=== PATIENT | female | born 1965 | race Caucasian/White ===

== ENCOUNTER 2018-09-11 18:56 | Inpatient (IN) | payer MEDICAID ==
[~2018-09-11] VITALS: Ht 160 cm; Wt 77.0 kg
[~2018-09-11 18:56] MED LIST: ADVIL; DULO20CA17 PO; GABA-526 PO; HYOS0.1297 PO; OMEP20CA16 PO; SUCR1TAB56 PO; TOPI50TA13 PO
[2018-09-11 18:59] VITALS: Ht 160 cm; Wt 77.0 kg
[2018-09-11] MEDS ORDERED: ONDANSETRON 4 MG INJ IV STA ×2 (21:02→23:45)
[2018-09-11] MEDS ORDERED: morphine 4 MG/ML VIAL IV STA (21:02)
[2018-09-11] MEDS ORDERED: SOD CHLORIDE 0.9% 1,000 ML IV STA (21:02)
[2018-09-11] MEDS ORDERED: BELLADONNA/PHENOBARBITAL TAB PO STA (21:17)
[2018-09-11] MEDS ORDERED: LIDOCAINE/MYLANTA 40 ML BTL PO STA (21:17)
--- NOTE | 2018-09-11 21:17 | ERD ---
ER Documentation Chief Complaint Chief Complaint REFFERED FROM U/C FOR R/O GALLSTONES;RUQ AND BACK PAIN X1WK HPI This is a 53-year-old female that presents to the emergency department complaining of right upper quadrant pain for 1 month. She indicates that it is progressively worsened over the past week worse now radiated to the tip of her right scapula. She was seen today at clinic, [facility], seen by Dr. Balderrama. She was immediately sent to the emergency department for further evaluation for her pain. The patient indicates the pain is exacerbated when she eats. She felt nauseous but has not experienced any emesis. No diarrhea. No fevers or shaking or chills. No alleviating or exacerbating factors. The pain is 8 out of 10 in intensity. ROS All systems reviewed and are negative except as per history of present illness. Medications Home Meds Active Scripts Sucralfate* (Carafate*) 1 Gm Tab, 1 GM PO BID, #60 TAB Prov:EDOUARD MACHADO MD 09/11/18 Reported Medications [Advil] No Conflict Check 06/18/11 Allergies Allergies: Uncoded Allergies: NONE (Allergy, 06/18/11) PMhx/Soc History of Surgery: No Anesthesia Reaction: No Hx Neurological Disorder: No Hx Respiratory Disorders: No Hx Cardiac Disorders: No Hx Psychiatric Problems: No Hx Miscellaneous Medical Probl: No Hx Alcohol Use: No Hx Substance Use: No Hx Tobacco Use: No Physical Exam Vitals Vital Signs Date Temp Pulse Resp B/P (MAP) Pulse Ox O2 O2 Flow FiO2 Time Delivery Rate 09/11/18 97.8 66 19 113/66 99 Room Air 21:15 (82) 09/11/18 97.8 72 19 134/74 99 18:59 (94) Physical Exam Constitutional:Well-developed. Well-nourished. HEENT:Normocephalic. Atraumatic.Pupils were equal round reactive to light. Moist mucous membranes. Respiratory: Not using accessory muscles of respiration.Lungs were clear to auscultation bilaterally. No rhonchi. No rales. No wheezing. Cardiovascular: Regular rate regular rhythm.No murmurs. No rubs were appreciated.S1, S2 normal. Distal pulses are palpable 2+ bilaterally. GI: Abdomen was soft. Right upper quadrant tenderness. Negative Cordero sign. Tenderness in the right lower quadrant. No CVA tenderness. No tenderness over McBurney's point and psoas sign and obturator sign are negative.. Non Distended. No pulsatile abdominal masses or bruits. No rebound. No guarding. Bowel sounds were present and normal. Muscle skeletal: Full range of motion of both the upper and lower extremities bilaterally.Normal muscle tone.No assymetrical calf tenderness or swelling. Skin: No petechia, no purpura. No lesions on the palms or the soles of the feet. No maculopapular rash. NEURO: Patient was alert, awake, orientated x3.No facial droop. Gait observed and normal with no ataxia.Speech had regular rate and rhythm. No focal neurological deficits. Result Diagram: 09/11/18214909/11/182149 Results 24 hrs Laboratory Tests Test 09/11/18 21:40 09/11/18 21:50 Urine Color STRAW Urine Clarity CLEAR Urine pH 6.0 Urine Specific [place] 1.003 Urine Ketones NEGATIVE mg/dL Urine Nitrite NEGATIVE mg/dL Urine Bilirubin NEGATIVE mg/dL Urine Urobilinogen NEGATIVE mg/dL Urine Leukocyte Esterase NEGATIVE Frandy/ul Urine Hemoglobin NEGATIVE mg/dL Urine Glucose NEGATIVE mg/dL Urine Total Protein NEGATIVE mg/dl White Blood Count 7.5 10^3/ul Red Blood Count 4.14 10^6/ul Hemoglobin 12.4 g/dl Hematocrit 37.9 % Mean Corpuscular Volume 91.5 fl Mean Corpuscular Hemoglobin 30.0 pg Mean Corpuscular Hemoglobin Concent 32.7 g/dl Red Cell Distribution Width 14.4 % Platelet Count 239 10^3/UL Mean Platelet Volume 11.6 fl Immature Granulocytes % 0.300 % Neutrophils % 55.5 % Lymphocytes % 36.7 % Monocytes % 6.2 % Eosinophils % 0.9 % Basophils % 0.4 % Nucleated Red Blood Cells % 0.0 /100WBC Immature Granulocytes # 0.020 10^3/ul Neutrophils # 4.2 10^3/ul Lymphocytes # 2.8 10^3/ul Monocytes # 0.5 10^3/ul Eosinophils # 0.1 10^3/ul Basophils # 0.0 10^3/ul Nucleated Red Blood Cells # 0.0 10^3/ul Prothrombin Time 12.9 Sec Prothrombin Time Ratio 1.0 INR International Normalized Ratio 0.96 Activated Partial Thromboplast Time 35.8 Sec Sodium Level 140 mmol/L Potassium Level 3.4 mmol/L Chloride Level 107 mmol/L Carbon Dioxide Level 22 mmol/L Anion Gap 11 Blood Urea Nitrogen 10 mg/dl Creatinine 0.65 mg/dl Est Glomerular Filtrat Rate mL/min > 60 mL/min Glucose Level 139 mg/dl Calcium Level 9.3 mg/dl Total Bilirubin 0.4 mg/dl Direct Bilirubin 0.00 mg/dl Indirect Bilirubin 0.4 mg/dl Aspartate Amino Transf (AST/SGOT) 23 IU/L Alanine Aminotransferase (ALT/SGPT) 22 IU/L Alkaline Phosphatase 63 IU/L Troponin I < 0.012 ng/ml Total Protein 7.7 g/dl Albumin 4.1 g/dl Globulin 3.60 g/dl Albumin/Globulin Ratio 1.13 Amylase Level 82 U/L Lipase 57 U/L Current Medications Medications Dose Sig/Daniel Start Time Status Last (Trade) Ordered Route PRN Stop Time Admin Dose Reason Admin Sodium 1,000 ml @ Q1H STAT 09/11/18 DC 09/11/18 Chloride 1,000 mls/hr IV 21:02 21:02 09/11/18 22:01 Morphine 4 mg ONCE STAT 09/11/18 DC 09/11/18 Sulfate IV 21:02 21:02 (morphine) 09/11/18 21:03 Ondansetron 4 mg ONCE STAT 09/11/18 DC 09/11/18 HCl (Zofran IV 21:02 21:02 Inj) 09/11/18 21:03 40 ml ONCE STAT 09/11/18 DC 09/11/18 Miscellaneous PO 21:17 21:57 Medication 09/11/18 21:18 (Gi Cocktail (2)) Belladonna/ 2 tab ONCE STAT 09/11/18 DC 09/11/18 Phenobarbital PO 21:17 21:57 () 09/11/18 21:18 IV Flush 10 ml STK-MED 09/11/18 DC (NS 10 ml) ONCE .ROUTE 21:53 09/11/18 21:54 Sodium 100 ml @ ud STK-MED 09/11/18 DC Chloride ONCE .ROUTE 21:53 09/11/18 21:54 Iohexol 150 ml STK-MED 09/11/18 DC (Omnipaque ONCE .ROUTE 21:53 300mg/ ml) 09/11/18 21:54 Procedures/MDM The patient presented to the emergency department with epigastric pain. My differential diagnosis included but was not limited to abdominal aortic aneurysm, choledocholithiasis, gallstone ileus, renal colic, pyelonephritis, pancreatitis, peptic ulcer disease, atypical myocardical infarction, mesenteric ischemia, GERD, pulmonary infarction. The patient was placed on a vehicle monitor technician, continuous pulse oximetry and IV access was established by nursing staff. An EKG was obtained to rule out myocardial ischemia. There was no elevation of LFTs to suggest ductal obstruction, cholangitis, cholecystiitis or hepatitis. Given that the urinalysis did not show bilirubinuria, my suspicion for common duct obstruction or hepatitis was low. 12 Lead EKG tracing ordered and reviewed by myself showed: Normal sinus rhythm of 67 bpm and no arrhythmia. NH interval normal. QRS duration normal. No ST segment elevation No ST segment depression. No changes consistent with acute ischemia. I obtained a bedside ultrasound of the gallbladder. There is no evidence of cholelithiasis. Therefore at this time I did feel it was necessary to further evaluate with a CT scan given that she did have reproducible tenderness of right lower quadrant however there were no peritoneal signs. CT of the abdomen reviewed by the radiologist myself indicated no evidence of appendicitis or abdominal perforation. There was a single moderately distended fluid filled loops small bowel right lower quadrant without mural thickening or transition. This most likely represents focal ileus, however, early or partial small bowel cannot be ruled out. Clinical correlation suggested. Small bowel follow-through could be performed for more definitive diagnosis if clinically indicated. The patient had no leukocytosis. There is no severe electrolyte abnormalities. No evidence of atypical myocardial ischemia. The patient stated she did have 2 bowel movements today with flatulence. My clinical suspicion was low for small bowel obstruction. I will obtain a small bowel follow-through for further evaluation as the patient still continued to be in abdominal pain despite receiving opiate analgesic medication and a GI cocktail. She will be admitted for observation to the hospitalist. She is had no previous abdominal surgeries. Departure Diagnosis: Primary Impression: Ileus Condition: EDOUARD Novoa MD Sep 11, 2018 21:17
[2018-09-11] MEDS ORDERED: IOHEXOL 300MG/ML 150 ML BTL ONE (21:53)
[2018-09-11] MEDS ORDERED: SOD CHLORIDE 0.9% 100 ML ONE (21:53)
[2018-09-11] MEDS ORDERED: HYDROmorphONE 1 MG/ML SYG IV STA (23:45)
--- NOTE | 2018-09-11 23:46 | HP ---
Date/Time of Note Date/Time of Note DATE: 09/11/18 TIME: 23:45 Assessment/Plan VTE Prophylaxis SCD applied (from Nsg): Yes Pharmacological prophylaxis: NA/contraindicated Pharm contraindication: low risk/ambulating Lines/Catheters IV Catheter Type (from Nrsg): Saline Lock Assessment/Plan Hospital Course This is a 53-year female being admitted to the [facility] floor for: #1 intractable abdominal pain: Abdominal pain x1 month. Ileus versus peptic ulcer disease versus other. CT abdomen pelvis: Single moderately distended fluid filled loops small bowel right lower quadrant without mural thickening or transition. This most likely represents focal ileus, however, early or partial small bowel cannot be ruled out. We will keep the patient n.p.o. IV fluid hydration with normal saline. Pain management. Zofran for nausea. General surgery has been consulted. Ultrasound of the gallbladder does not show any signs of gallstones. Protonix twice daily for possible underlying dyspepsia/peptic ulcer disease #2 obesity: We will check hemoglobin A 1C, lipid panel, TSH #3 DVT GI prophylaxis on SCDs, Protonix Further treatment strategy will be implemented as per the clinical course Result Diagram: 09/11/18214909/11/182149 Results 24hrs Laboratory Tests Test 09/11/18 21:40 09/11/18 21:50 Urine Color STRAW Urine Clarity CLEAR Urine pH 6.0 Urine Specific [place] 1.003 Urine Ketones NEGATIVE Urine Nitrite NEGATIVE Urine Bilirubin NEGATIVE Urine Urobilinogen NEGATIVE Urine Leukocyte Esterase NEGATIVE Urine Hemoglobin NEGATIVE Urine Glucose NEGATIVE Urine Total Protein NEGATIVE White Blood Count 7.5 Red Blood Count 4.14 L Hemoglobin 12.4 Hematocrit 37.9 Mean Corpuscular Volume 91.5 Mean Corpuscular Hemoglobin 30.0 Mean Corpuscular Hemoglobin Concent 32.7 Red Cell Distribution Width 14.4 Platelet Count 239 Mean Platelet Volume 11.6 H Immature Granulocytes % 0.300 Neutrophils % 55.5 Lymphocytes % 36.7 Monocytes % 6.2 Eosinophils % 0.9 Basophils % 0.4 Nucleated Red Blood Cells % 0.0 Immature Granulocytes # 0.020 Neutrophils # 4.2 Lymphocytes # 2.8 Monocytes # 0.5 Eosinophils # 0.1 Basophils # 0.0 Nucleated Red Blood Cells # 0.0 Prothrombin Time 12.9 Prothrombin Time Ratio 1.0 INR International Normalized Ratio 0.96 Activated Partial Thromboplast Time 35.8 H Sodium Level 140 Potassium Level 3.4 L Chloride Level 107 Carbon Dioxide Level 22 Anion Gap 11 Blood Urea Nitrogen 10 Creatinine 0.65 Est Glomerular Filtrat Rate mL/min > 60 Glucose Level 139 Calcium Level 9.3 Total Bilirubin 0.4 Direct Bilirubin 0.00 Indirect Bilirubin 0.4 Aspartate Amino Transf (AST/SGOT) 23 Alanine Aminotransferase (ALT/SGPT) 22 Alkaline Phosphatase 63 Troponin I < 0.012 Total Protein 7.7 Albumin 4.1 Globulin 3.60 H Albumin/Globulin Ratio 1.13 Amylase Level 82 Lipase 57 HPI/ROS Admit Date/Time Admit Date/Time Hx of Present Illness Chief complaint: Abdominal pain x1 month This is a 53-year-old female that presents to the emergency department complaining of right upper quadrant pain for 1 month. She indicates that it is progressively worsened over the past week worse now radiated to the tip of her right scapula. She was seen today at clinic, [facility], seen by Dr. Balderrama. She was immediately sent to the emergency department for further evaluation for her pain. The patient indicates the pain is exacerbated when she eats. She felt nauseous but has not experienced and has had only one episode of vomiting which occurred yesterday. No diarrhea. No fevers or shaking or chills. She apparently was told in the past that she had gallstones. No alleviating or exacerbating factors. The pain is 8 out of 10 in intensity. She has been evaluated at [facility] in the past. She does report that at times she notices pain going from the epigastric area up her esophagus. Allergies: NKDA Medications: duloxetine 20 mg p.o. 3 times daily Next Gabapentin 600 mg p.o. twice daily Sucralfate 1 mg p.o. twice daily Topamax 50 mg p.o. twice daily Omeprazole 20 mg p.o. twice daily ROS Const: As per HPI Eyes : No pain discharge or redness or change in visual acuity ENT: No pain, sore throat, congestion, congestion, dysphagia or discharge Respiratory: No shortness of breath, cough, sputum, wheezing, or pleuritic pain Cardiovascular: No chest pain, palpitation, PND, or edema GI : As per HPI Genitourinary: No dysuria, hematuria, flank pain , discharge or CVA tenderness Musculoskeletal: No joint pain, back pain, neck pain, restricted range of motion in neck or joints Skin: No rash, bruising or hives Neuro: No headache, dizziness, syncope, seizure, focal weakness Endocrine: No polyuria, polydipsia, temperature intolerance Psych: No hallucination, depression, anxiety or suicidal ideation PMH/Family/Social Past Medical History Facial nerve pain Uncoded Allergies: NONE (Allergy, Unknown, 09/11/18) Past Surgical History Past Surgical Hx: no surgical history Family History Significant Family History: no pertinent family hx Social History Alcohol Use: sober Smoking Status: Never smoker Drug Use: none Exam/Review of Systems Vital Signs Vitals Vital Signs Date Temp Pulse Resp B/P (MAP) Pulse Ox O2 O2 Flow FiO2 Time Delivery Rate 09/11/18 97.8 66 19 113/66 99 Room Air 21:15 (82) Exam Exam General: Patient is currently lying in bed in mild distress from abdominal pain HEENT: Atraumatic, normocephalic. The pupils are equal, round and reactive. Extraocular motor are intact Neck: Supple with full range of motion. No rigidity or meningismus Chest: Nontender Lungs: Clear to auscultation bilaterally no crackles rales or wheezing Heart: Normal S1-S2, Regular rhythm and rate. No murmur, S3, or S4 Abdomen: Obese, soft , nontender, nondistended , bowel sounds are present. No guarding no rebound tenderness , No masses or organomegaly. No costovertebral temporal angle mass Extremities: Normal to inspection, no edema no cyanosis Musculoskeletal: No tenderness to palpation along the cervical or thoracic spine or lumbar spine. Neurologic: Normal mental status, speech normal, cranial nerves II through XII are intact, motor and sensory are intact, Additional Comments PROCEDURE: CT abdomen and pelvis with contrast. CLINICAL INDICATION: Abdominal Pain TECHNIQUE: CT scan of the abdomen and pelvis without oral contrast was performed and is reconstructed at 2.5 mm contiguous axial intervals from the dome of the diaphragm to the inferior pubic rami.. The patient was scanned with intravenous contrast. Sagittal and coronal reformatted images were obtained from the axial source images. The calculated radiation dose measures 665 mGy centimeters. The CTDI measures 12.6 mGy. Individualized dose optimization technique was used for the performance of this exam. This included 1. Automated exposure control. 2. Adjustment of the mA and / or kV according to the patient's size. 3. Use of iterative reconstructed technique. DICOM images are available. COMPARISON: None. FINDINGS: The lung bases are clear of any infiltrate or nodule. No effusion is seen. The liver is of normal size, contour and attenuation with no solid mass or ductal dilatation. No gallstones are visualized. No splenic, adrenal or pancreatic abnormalities present. Kidneys enhance symmetrically and are of normal size and contour. No hydronephrosis, calculus or mass Is seen. Ureters are of normal course and caliber with no stone. No bladder mass or stone is present. Uterus and ovaries appear normal. There is no aneurysm. No adenopathy is present. No bowel mass is seen. There is a single loop of moderately distended small bowel in the right lower quadrant and right pelvis. There is no associated mural thickening or mesenteric edema and the transition is not confidently visualized. There is no associated mass. This most likely represents focal ileus. Earlier partial small bowel obstruction cannot be ruled out.. The appendix is not inflamed. There is a calcified appendicolith in the lumen.. No phlegmon, ascites or pneumoperitoneum is visualized. The osseous structures are intact. IMPRESSION: No evidence of urolithiasis, obstructive uropathy, diverticulitis or appendicitis. Calcified appendicolith. Tiny hepatic cysts. Single moderately distended fluid filled loops small bowel right lower quadrant without mural thickening or transition. This most likely represents focal ileus, however, early or partial small bowel cannot be ruled out. Clinical correlation suggested. Small bowel follow-through could be performed for more definitive diagnosis if clinically indicated. .Elgin Echeverria MD, Date Time Electronically viewed and signed by .Elgin Echeverria MD, MD on 09/11/2018 22:54 .A/ CC: EDOUARD MACHADO MD [id number] PROCEDURE: US abdomen limited right upper quadrant. CLINICAL INDICATION: Abdominal pain TECHNIQUE: Multiple real-time images were acquired of the patient's right upper quadrant of the abdomen utilizing a high resolution transducer. COMPARISON: None FINDINGS: No gallstones are identified within the gallbladder. There is no pericholecystic fluid or gallbladder wall thickening. The common bile duct measures 2.7 mm in maximal dimension. No free fluid is identified. No abnormality is seen in the pancreas or liver. The inferior vena cava is unremarkable. No aneurysm of the proximal abdominal aorta is seen. The right kidney measures 9.8 cm in length. Appearance of minimal nonspecific fluid in the right renal collecting system. IMPRESSION: Appearance of minimal nonspecific fluid in the right renal collecting system. Otherwise unremarkable examination as noted above. Please see above. RPTAT: HJES .Aguila Nelson MD, MD Date Time Electronically viewed and signed by .Aguila Nelson MD, MD on 09/11/2018 21:57 .S/ CC: EDOUARD MACHADO MD [id number] TARAS PLUMMER Sep 11, 2018 23:45
[2018-09-12] MEDS ORDERED: ACETAMINOPHEN 325 MG TAB PO PRN
[2018-09-12] MEDS ORDERED: METOCLOPRAMIDE 10 MG INJ IV PRN
[2018-09-12] MEDS ORDERED: NACL 0.9% 3 ML SYG IV SCH
[2018-09-12] MEDS: SOD CHLORIDE 0.9% 1,000 ML IV SCH ×3 (00:06→22:27)
[2018-09-12 00:31] VITALS: BP 104/55; PULSE 51; RESP 20
[2018-09-12 02:59] VITALS: BP 118/73; PULSE 79; RESP 16
[2018-09-12] MEDS ORDERED: POTASSIUM CHLORIDE (SR) 20 MEQ TAB PO ONE (08:00)
[2018-09-12 08:13] VITALS: BP 114/66; PULSE 60; RESP 17
[2018-09-12] MEDS: morphine 2 MG INJ IV PRN ×3 (10:48→21:13)
[2018-09-12] MEDS: ONDANSETRON 4 MG INJ IV PRN ×2 (10:52→17:04)
--- NOTE | 2018-09-12 11:41 | CONS ---
Assessment/Plan Assessment/Plan Hospital Course (Demo Recall) Summary Assessment and Plan: Assessment: Upper abdominal pain -CT abdomen pelvis with contrastfocal ileus versus early or partial small bowel obstruction Normocytic anemia, mild Trigeminal neuralgia Anxiety/depression Plan: SBFT NPO Pain management Further recommendations based on clinical course-small bowel follow-through is negative and abdominal pain continues to persist will consider other etiology and consider EGD to rule out PUD versus gastritis vs other Patient seen in collaboration with Dr. Avilez CC: TRICIA AVILEZ MD ; Consultation Date/Type/Reason Admit Date/Time Date of Consultation: Sep 12, 2018 Type of Consult GI Reason for Consultation Upper abdominal pain Requesting Provider: TARAS PLUMMER Date/Time of Note DATE: 09/12/18 TIME: 11:30 Hx of Present Illness This is a 53-year-old female with past medical history of mild anxiety depression, pyrosis, trigeminal neuralgia on Neurontin. Who presented to [facility] with complaints of persistent abdominal pain. Patient states she previously was evaluated alt [facility], symptoms deemed to be secondary to a virus, and subsequently discharged. She went on vacation to [place], however symptoms of abdominal pain and nausea persisted, again there she was evaluated in [place]. She was given tramadol and discharged. Upon return to the [facility] her symptoms became worse, she presented to ED for further evaluation. Returns pain is secondary to SBO versus ileus versus dyspepsia. GIs been consulted for further evaluation here imaging was obtained a CT abdomen pelvis with contrast shows single moderately distended fluid-filled loops of small bowel right lower quadrant without mural thickening or transition this most likely represents focal ileus, however earlier partial small bowel obstruction cannot be ruled out. Clinical correlation suggested. Small bowel follow- through could be performed for more definitive diagnosis if clinically indicated. \At time of evaluation patient is resting in bed complains of upper abdominal pain currently no complaints of nausea or vomiting. She did complain of nausea yesterday without vomiting. She states her last bowel movement was yesterday noted to be formed brown. Currently she denies passing flatus. Review of Systems: A 12 system, review was conducted and is negative except as noted in the HPI or here. Past Medical History Home Meds Active Scripts Sucralfate* (Carafate*) 1 Gm Tab, 1 GM PO BID, #60 TAB Prov:EDOUARD MACHADO MD 09/11/18 Reported Medications Gabapentin* (Gabapentin*) 600 Mg Tablet, 600 MG PO TID for NERVE PAIN, #60 TAB 09/12/18 Duloxetine Hcl* (Duloxetine Hcl*) 20 Mg Capsule.dr, 20 MG PO TID for NERVE PAIN, #30 CAP 09/12/18 Topiramate* (Topiramate*) 50 Mg Tablet, 50 MG PO BID for MIGRAINE HEADACHE, TAB 09/12/18 Omeprazole* (Omeprazole*) 20 Mg Capsule.dr, 20 MG PO BID, #60 CAP 09/12/18 [Advil] No Conflict Check 06/18/11 Medications Current Medications Sodium Chloride 1,000 ml @ 100 mls/hr Q10H IV Last administered on 09/12/18at 09:27; Admin Dose 100 MLS/HR; Start 09/11/18 at 23:46 IV Flush (NS 3 ml) 3 ml PER PROTOCOL IV ; Start 09/12/18 at 00:00 Ondansetron HCl (Zofran Inj) 4 mg Q6H PRN IV NAUSEA/VOMITING Last administered on 09/12/18at 10:52; Admin Dose 4 MG; Start 09/12/18 at 00:00 Metoclopramide HCl (Reglan) 10 mg Q6H PRN IV NAUSEA/VOMITING; Start 09/12/18 at 00:00 Acetaminophen (Tylenol Tab) 650 mg Q6H PRN PO .PAIN 1-3 OR TEMP; Start 09/12/18 at 00:00 Morphine Sulfate (morphine) 2 mg Q4H PRN IV .SEVERE PAIN 7-10 Last administered on 09/12/18at 10:48; Admin Dose 2 MG; Start 09/12/18 at 00:00 Pantoprazole (Protonix Iv) 40 mg BID@06,18 IV ; Start 09/12/18 at 18:00 Allergies: Uncoded Allergies: NONE (Allergy, Unknown, 09/11/18) Past Surgical History Past Surgical Hx: no surgical history Social History Alcohol Use: sober Smoking Status: Never smoker Drug Use: none Exam/Review of Systems Exam Vitals Vital Signs Date Temp Pulse Resp B/P (MAP) Pulse Ox O2 O2 Flow FiO2 Time Delivery Rate 09/12/18 98.3 60 17 114/66 98 Room Air 08:13 (82) Intake and Output 09/11/18 09/11/18 09/12/18 1414:59 22:59 06:59 IntakeIntake Total 500 ml BalanceBalance 500 ml Exam PHYSICAL EXAMINATION: GENERAL: Well developed, well nourished, alert & oriented x 3, in no acute di stress SKIN: No lesions HEAD: Normocephalic, atraumatic, no tenderness. EYES: Pupils equal reactive to light and accommodation, no discharge. EARS/NOSE AND THROAT: Ears normal, nose normal. NECK: Supple, no masses. CHEST: Inspection within normal limits. CARDIOVASCULAR: Heart: Regular rate and rhythm. RESPIRATORY: Lungs clear to auscultation GASTROINTESTINAL AND LIVER: Abdomen: Soft, upper abdominal pain, non-distended, no hernias, no masses, no organomegaly, no ascites, no guarding, no rebound tenderness, normoactive bowel sounds. Rectal: Deferred. EXTREMITIES: No cyanosis, clubbing or edema. Results Result Diagram: 09/12/18 0623 09/12/18 06 Results 24hrs Laboratory Tests Test 09/11/18 21:40 09/11/18 21:50 09/12/18 06:23 Urine Color STRAW Urine Clarity CLEAR Urine pH 6.0 Urine Specific [place] 1.003 Urine Ketones NEGATIVE Urine Nitrite NEGATIVE Urine Bilirubin NEGATIVE Urine Urobilinogen NEGATIVE Urine Leukocyte Esterase NEGATIVE Urine Hemoglobin NEGATIVE Urine Glucose NEGATIVE Urine Total Protein NEGATIVE White Blood Count 7.5 6.1 Red Blood Count 4.14 L 3.72 L Hemoglobin 12.4 11.2 L Hematocrit 37.9 34.2 L Mean Corpuscular Volume 91.5 91.9 Mean Corpuscular Hemoglobin 30.0 30.1 Mean Corpuscular Hemoglobin Concent 32.7 32.7 Red Cell Distribution Width 14.4 14.5 Platelet Count 239 204 Mean Platelet Volume 11.6 H 12.1 H Immature Granulocytes % 0.300 0.200 Neutrophils % 55.5 49.7 Lymphocytes % 36.7 41.9 Monocytes % 6.2 6.4 Eosinophils % 0.9 1.5 Basophils % 0.4 0.3 Nucleated Red Blood Cells % 0.0 0.0 Immature Granulocytes # 0.020 0.010 Neutrophils # 4.2 3.0 Lymphocytes # 2.8 2.6 Monocytes # 0.5 0.4 Eosinophils # 0.1 0.1 Basophils # 0.0 0.0 Nucleated Red Blood Cells # 0.0 0.0 Prothrombin Time 12.9 Prothrombin Time Ratio 1.0 INR International Normalized Ratio 0.96 Activated Partial Thromboplast Time 35.8 H Sodium Level 140 144 Potassium Level 3.4 L 4.3 Chloride Level 107 112 H Carbon Dioxide Level 22 26 Anion Gap 11 6 Blood Urea Nitrogen 10 9 Creatinine 0.65 0.63 Est Glomerular Filtrat Rate mL/min > 60 > 60 Glucose Level 139 92 # Calcium Level 9.3 8.4 Total Bilirubin 0.4 0.5 Direct Bilirubin 0.00 0.00 Indirect Bilirubin 0.4 0.5 Aspartate Amino Transf (AST/SGOT) 23 26 Alanine Aminotransferase (ALT/SGPT) 22 18 Alkaline Phosphatase 63 58 Troponin I < 0.012 Total Protein 7.7 6.3 # Albumin 4.1 3.3 Globulin 3.60 H 3.00 Albumin/Globulin Ratio 1.13 1.10 Amylase Level 82 Lipase 57 Hemoglobin A1c 5.6 Magnesium Level 2.3 Triglycerides Level 92 Cholesterol Level 183 LDL Cholesterol, Calculated 127 HDL Cholesterol 38 Cholesterol/HDL Ratio 4.8 Thyroid Stimulating Hormone (TSH) 2.610 Medications Medication Current Medications Sodium Chloride 1,000 ml @ 100 mls/hr Q10H IV Last administered on 09/12/18at 09:27; Admin Dose 100 MLS/HR; Start 09/11/18 at 23:46 IV Flush (NS 3 ml) 3 ml PER PROTOCOL IV ; Start 09/12/18 at 00:00 Ondansetron HCl (Zofran Inj) 4 mg Q6H PRN IV NAUSEA/VOMITING Last administered on 09/12/18at 10:52; Admin Dose 4 MG; Start 09/12/18 at 00:00 Metoclopramide HCl (Reglan) 10 mg Q6H PRN IV NAUSEA/VOMITING; Start 09/12/18 at 00:00 Acetaminophen (Tylenol Tab) 650 mg Q6H PRN PO .PAIN 1-3 OR TEMP; Start 09/12/18 at 00:00 Morphine Sulfate (morphine) 2 mg Q4H PRN IV .SEVERE PAIN 7-10 Last administered on 09/12/18at 10:48; Admin Dose 2 MG; Start 09/12/18 at 00:00 Pantoprazole (Protonix Iv) 40 mg BID@06,18 IV ; Start 09/12/18 at 18:00 ANAMARIA HIGGINS 25, 2019 11:41
[2018-09-12] MEDS: TOPIRAMATE 25 MG TAB PO SCH ×2 (12:30→22:28)
[2018-09-12] MEDS: DULOXETINE 20 MG CAP DR PO SCH ×2 (12:42→22:28)
[2018-09-12] MEDS: GABAPENTIN 300 MG CAP PO SCH ×2 (12:43→22:28)
--- NOTE | 2018-09-12 13:20 | CONS ---
Assessment/Plan Assessment/Plan Hospital Course (Demo Recall) 1. Abdominal pain with concern for small bowel obstruction: + Bowel function -SBFT -N.p.o. -IV fluids -Pain management PRN 2.Normocytic normochromic anemia: -Monitor and transfuse as needed 3. Hypokalemia: Resolved 4. Calcified appendicolith without evidence of appendicitis -Monitor 5. Obesity: BMI: 30 -diet and exercise optimization -encourage weight loss 6. Anxiety, depression -Psychiatric optimization 7. Trigeminal neuralgia: -Medical management Thank you. Patient seen and examined in collaboration with Dr. Erickson Ashley. Consultation Date/Type/Reason Admit Date/Time Date of Consultation: Sep 12, 2018 Type of Consult Surgical Reason for Consultation abdominal pain, concern for small bowel obstruction Requesting Provider: TARAS PLUMMER Date/Time of Note DATE: 09/12/18 TIME: 13:12 Hx of Present Illness Petra Paula is a 53-year-old woman with past medical history of anxiety, depression, heartburn, trigeminal neuralgia, who presented to the ED with complaints of abdominal pain. Reportedly, she was evaluated recently at [facility] and was diagnosed with a viral infection and was subsequently discharged. Additionally, they also recently traveled to [place] the beginning of the month with the same abdominal pain. She was also evaluated in [place] without acute findings. She once again returns with reports of abdominal pain predominantly in mid epigastric region with radiation to the back. Associated symptoms include nausea with vomiting, nonbloody emesis. She also reports posit reymundo bowel function with bowel movement today. Ultrasound of the abdomen was performed with nonspecific fluid in right renal collecting system, no gallstones within gallbladder, no pericholecystic fluid or gallbladder wall thickening was noted. CT of the abdomen was also performed which noted a single moderately distended fluid-filled loop of small bowel in the right lower quadrant without mural thickening or transition with concern for focal ileus versus early or partial small bowel obstruction. Laboratory findings were unremarkable. No reports of fevers, chills, congested cough, chest pain, palpitations, change in bowel or bladder habits, seizure, rash, skin changes. General surgery was asked to evaluate. 12 point review of systems was reviewed and is negative except for as stated in HPI. Past Medical History Obesity, anxiety, depression, trigeminal neuralgia Home Meds Active Scripts Sucralfate* (Carafate*) 1 Gm Tab, 1 GM PO BID, #60 TAB Prov:EDOUARD MACHADO MD 09/11/18 Reported Medications Gabapentin* (Gabapentin*) 600 Mg Tablet, 600 MG PO TID for NERVE PAIN, #60 TAB 09/12/18 Duloxetine Hcl* (Duloxetine Hcl*) 20 Mg Capsule.dr, 20 MG PO TID for NERVE PAIN, #30 CAP 09/12/18 Topiramate* (Topiramate*) 50 Mg Tablet, 50 MG PO BID for MIGRAINE HEADACHE, TAB 09/12/18 Omeprazole* (Omeprazole*) 20 Mg Capsule.dr, 20 MG PO BID, #60 CAP 09/12/18 [Advil] No Conflict Check 06/18/11 Medications Current Medications Sodium Chloride 1,000 ml @ 100 mls/hr Q10H IV Last administered on 09/12/18at 09:27; Admin Dose 100 MLS/HR; Start 09/11/18 at 23:46 IV Flush (NS 3 ml) 3 ml PER PROTOCOL IV ; Start 09/12/18 at 00:00 Ondansetron HCl (Zofran Inj) 4 mg Q6H PRN IV NAUSEA/VOMITING Last administered on 09/12/18at 10:52; Admin Dose 4 MG; Start 09/12/18 at 00:00 Metoclopramide HCl (Reglan) 10 mg Q6H PRN IV NAUSEA/VOMITING; Start 09/12/18 at 00:00 Acetaminophen (Tylenol Tab) 650 mg Q6H PRN PO .PAIN 1-3 OR TEMP; Start 09/12/18 at 00:00 Morphine Sulfate (morphine) 2 mg Q4H PRN IV .SEVERE PAIN 7-10 Last administered on 09/12/18at 10:48; Admin Dose 2 MG; Start 09/12/18 at 00:00 Pantoprazole (Protonix Iv) 40 mg BID@06,18 IV ; Start 09/12/18 at 18:00 Duloxetine HCl (Cymbalta) 20 mg TID PO ; Start 09/12/18 at 13:00 Gabapentin (Neurontin) 600 mg TID PO ; Start 09/12/18 at 13:00 Topiramate (Topamax) 50 mg BID PO ; Start 09/12/18 at 12:30 Allergies: Uncoded Allergies: NONE (Allergy, Unknown, 7/24/19) Past Surgical History Past Surgical Hx: no surgical history Family History Significant Family History: no pertinent family hx Social History Alcohol Use: sober Smoking Status: Never smoker Drug Use: none Exam/Review of Systems Exam Vitals Vital Signs Date Temp Pulse Resp B/P (MAP) Pulse Ox O2 O2 Flow FiO2 Time Delivery Rate 09/12/18 98.3 60 17 114/66 98 Room Air 08:13 (82) Intake and Output 09/11/18 09/11/18 09/12/18 1414:59 22:59 06:59 IntakeIntake Total 500 ml BalanceBalance 500 ml Constitutional: alert, oriented Psych: anxiety (Minimal) Head: normocephalic, atraumatic Eyes: nl conjunctiva, EOMI, nl lids, nl sclera ENMT: nl external ears & nose, nl lips & teeth, nl nasal mucosa & septum, mucosa pink and moist Neck: supple, non-tender; No jvd Respiratory: normal air movement; No congested cough Cardiovascular: regular rate and rhythm, nl pulses; No edema Gastrointestinal: soft, non-tender, distended (Minimal) Genitourinary - Female: nl external genitalia Musculoskeletal: nl extremities to inspection, nl gait and stance; No joint tenderness Extremities: normal pulses Neurological: nl mental status, nl speech, nl strength Skin: No rash or lesions Results Result Diagram: 09/12/1862209/12/1823 Results 24hrs Laboratory Tests Test 09/11/18 21:40 09/11/18 21:50 09/12/18 06:23 Urine Color STRAW Urine Clarity CLEAR Urine pH 6.0 Urine Specific [place] 1.003 Urine Ketones NEGATIVE Urine Nitrite NEGATIVE Urine Bilirubin NEGATIVE Urine Urobilinogen NEGATIVE Urine Leukocyte Esterase NEGATIVE Urine Hemoglobin NEGATIVE Urine Glucose NEGATIVE Urine Total Protein NEGATIVE White Blood Count 7.5 6.1 Red Blood Count 4.14 L 3.72 L Hemoglobin 12.4 11.2 L Hematocrit 37.9 34.2 L Mean Corpuscular Volume 91.5 91.9 Mean Corpuscular Hemoglobin 30.0 30.1 Mean Corpuscular Hemoglobin Concent 32.7 32.7 Red Cell Distribution Width 14.4 14.5 Platelet Count 239 204 Mean Platelet Volume 11.6 H 12.1 H Immature Granulocytes % 0.300 0.200 Neutrophils % 55.5 49.7 Lymphocytes % 36.7 41.9 Monocytes % 6.2 6.4 Eosinophils % 0.9 1.5 Basophils % 0.4 0.3 Nucleated Red Blood Cells % 0.0 0.0 Immature Granulocytes # 0.020 0.010 Neutrophils # 4.2 3.0 Lymphocytes # 2.8 2.6 Monocytes # 0.5 0.4 Eosinophils # 0.1 0.1 Basophils # 0.0 0.0 Nucleated Red Blood Cells # 0.0 0.0 Prothrombin Time 12.9 Prothrombin Time Ratio 1.0 INR International Normalized Ratio 0.96 Activated Partial Thromboplast Time 35.8 H Sodium Level 140 144 Potassium Level 3.4 L 4.3 Chloride Level 107 112 H Carbon Dioxide Level 22 26 Anion Gap 11 6 Blood Urea Nitrogen 10 9 Creatinine 0.65 0.63 Est Glomerular Filtrat Rate mL/min > 60 > 60 Glucose Level 139 92 # Calcium Level 9.3 8.4 Total Bilirubin 0.4 0.5 Direct Bilirubin 0.00 0.00 Indirect Bilirubin 0.4 0.5 Aspartate Amino Transf (AST/SGOT) 23 26 Alanine Aminotransferase (ALT/SGPT) 22 18 Alkaline Phosphatase 63 58 Troponin I < 0.012 Total Protein 7.7 6.3 # Albumin 4.1 3.3 Globulin 3.60 H 3.00 Albumin/Globulin Ratio 1.13 1.10 Amylase Level 82 Lipase 57 Hemoglobin A1c 5.6 Magnesium Level 2.3 Triglycerides Level 92 Cholesterol Level 183 LDL Cholesterol, Calculated 127 HDL Cholesterol 38 Cholesterol/HDL Ratio 4.8 Thyroid Stimulating Hormone (TSH) 2.610 Medications Medication Current Medications Sodium Chloride 1,000 ml @ 100 mls/hr Q10H IV Last administered on 09/12/18at 09:27; Admin Dose 100 MLS/HR; Start 09/11/18 at 23:46 IV Flush (NS 3 ml) 3 ml PER PROTOCOL IV ; Start 09/12/18 at 00:00 Ondansetron HCl (Zofran Inj) 4 mg Q6H PRN IV NAUSEA/VOMITING Last administered on 09/12/18at 10:52; Admin Dose 4 MG; Start 09/12/18 at 00:00 Metoclopramide HCl (Reglan) 10 mg Q6H PRN IV NAUSEA/VOMITING; Start 09/12/18 at 00:00 Acetaminophen (Tylenol Tab) 650 mg Q6H PRN PO .PAIN 1-3 OR TEMP; Start 09/12/18 at 00:00 Morphine Sulfate (morphine) 2 mg Q4H PRN IV .SEVERE PAIN 7-10 Last administered on 09/12/18at 10:48; Admin Dose 2 MG; Start 09/12/18 at 00:00 Pantoprazole (Protonix Iv) 40 mg BID@06,18 IV ; Start 09/12/18 at 18:00 Duloxetine HCl (Cymbalta) 20 mg TID PO ; Start 09/12/18 at 13:00 Gabapentin (Neurontin) 600 mg TID PO ; Start 09/12/18 at 13:00 Topiramate (Topamax) 50 mg BID PO ; Start 09/12/18 at 12:30 SAMIRA CHU NP Sep 12, 2018 13:20
[2018-09-12] MEDS ORDERED: PHENOL 1.4% SOLN 180 ML BTL MT PRN (14:00)
--- NOTE | 2018-09-12 15:21 | PN ---
Date/Time of Note Date/Time of Note DATE: 09/12/18 TIME: 15:19 Assessment/Plan VTE Prophylaxis Risk score (from Nsg)>0 risk: 2 SCD applied (from Nsg): Yes Pharmacological prophylaxis: NA/contraindicated Pharm contraindication: low risk/ambulating Lines/Catheters IV Catheter Type (from Nrsg): Peripheral IV Assessment/Plan Hospital Course SUBJECTIVE: Continues to complain of abdominal pain. OBJECTIVE: Physical Exam General: Obese, 53 year-old female lying in bed in no apparent distress. HEENT: Normocephalic, atraumatic. Eyes: Anicteric sclerae, conjunctivae clear. ENT: Nasal septum midline, oral mucosa moist. Neck supple, no JVD noticed. Respiratory: Bilaterally clear breath sounds. No use of accessory muscles of respiration. No adventitious breath sounds. Cardiovascular: S1, S2 heard. Regular rate and rhythm. Abdomen: Soft and nondistended. Genitourinary: Deferred. Extremities: No cyanosis, no clubbing, no edema. Peripheral pulses palpable. Neurologic: Cranial nerves II through XII grossly intact. The patient is awake, alert, and oriented. Skin: Normal skin turgor. No skin rashes. Labs & Vitals per chart ASSESSMENT & PLAN 53-year-old female with past medical history of trigeminal neuralgia, anxiety, and depression who came to the emergency room with chief complaint of abdominal pain with CT evidence of ileus versus early/partial small bowel obstruction, was admitted to inpatient setting for further treatment and evaluation. 1. Abdominal pain with CT evidence of ileus Vs partial/early SBO. The patient being followed by general surgery and gastroenterology. The patient is n.p.o. Continue pain control. 2. Trigeminal neuralgia. Resume Neurontin once able to tolerate oral intake. 3. Anxiety disorder. Resume anxiolytics/mood stabilizers once able to tolerate oral intake. 4. Obesity. BMI of 30 kilogram per meter squared. Fasting lipid panel and hemoglobin A1c within normal limits. Advised therapeutic lifestyle changes. 5. Fluids, electrolytes, and nutrition. N.p.o. IV fluids. 6. DVT prophylaxis. Bilateral SCDs. Ambulation. 7. Plan. Continue n.p.o. Follow surgical recommendations. The patient was seen in collaboration with Dr. Camilo. Result Diagram: 09/12/18 0623 09/12/18 0623 Results 24hrs Laboratory Tests Test 09/11/18 21:40 09/11/18 21:50 09/12/18 06:23 Urine Color STRAW Urine Clarity CLEAR Urine pH 6.0 Urine Specific [place] 1.003 Urine Ketones NEGATIVE Urine Nitrite NEGATIVE Urine Bilirubin NEGATIVE Urine Urobilinogen NEGATIVE Urine Leukocyte Esterase NEGATIVE Urine Hemoglobin NEGATIVE Urine Glucose NEGATIVE Urine Total Protein NEGATIVE White Blood Count 7.5 6.1 Red Blood Count 4.14 L 3.72 L Hemoglobin 12.4 11.2 L Hematocrit 37.9 34.2 L Mean Corpuscular Volume 91.5 91.9 Mean Corpuscular Hemoglobin 30.0 30.1 Mean Corpuscular Hemoglobin Concent 32.7 32.7 Red Cell Distribution Width 14.4 14.5 Platelet Count 239 204 Mean Platelet Volume 11.6 H 12.1 H Immature Granulocytes % 0.300 0.200 Neutrophils % 55.5 49.7 Lymphocytes % 36.7 41.9 Monocytes % 6.2 6.4 Eosinophils % 0.9 1.5 Basophils % 0.4 0.3 Nucleated Red Blood Cells % 0.0 0.0 Immature Granulocytes # 0.020 0.010 Neutrophils # 4.2 3.0 Lymphocytes # 2.8 2.6 Monocytes # 0.5 0.4 Eosinophils # 0.1 0.1 Basophils # 0.0 0.0 Nucleated Red Blood Cells # 0.0 0.0 Prothrombin Time 12.9 Prothrombin Time Ratio 1.0 INR International Normalized Ratio 0.96 Activated Partial Thromboplast Time 35.8 H Sodium Level 140 144 Potassium Level 3.4 L 4.3 Chloride Level 107 112 H Carbon Dioxide Level 22 26 Anion Gap 11 6 Blood Urea Nitrogen 10 9 Creatinine 0.65 0.63 Est Glomerular Filtrat Rate mL/min > 60 > 60 Glucose Level 139 92 # Calcium Level 9.3 8.4 Total Bilirubin 0.4 0.5 Direct Bilirubin 0.00 0.00 Indirect Bilirubin 0.4 0.5 Aspartate Amino Transf (AST/SGOT) 23 26 Alanine Aminotransferase (ALT/SGPT) 22 18 Alkaline Phosphatase 63 58 Troponin I < 0.012 Total Protein 7.7 6.3 # Albumin 4.1 3.3 Globulin 3.60 H 3.00 Albumin/Globulin Ratio 1.13 1.10 Amylase Level 82 Lipase 57 Hemoglobin A1c 5.6 Magnesium Level 2.3 Triglycerides Level 92 Cholesterol Level 183 LDL Cholesterol, Calculated 127 HDL Cholesterol 38 Cholesterol/HDL Ratio 4.8 Thyroid Stimulating Hormone (TSH) 2.610 Exam/Review of Systems Exam Vitals Vital Signs Date Temp Pulse Resp B/P (MAP) Pulse Ox O2 O2 Flow FiO2 Time Delivery Rate 09/12/18 98.3 60 17 114/66 98 Room Air 08:13 (82) Intake and Output 09/11/18 09/11/18 09/12/18 1515:00 23:00 07:00 IntakeIntake Total 500 ml BalanceBalance 500 ml Results Results 24hrs Laboratory Tests Test 09/11/18 21:40 09/11/18 21:50 09/12/18 06:23 Urine Color STRAW Urine Clarity CLEAR Urine pH 6.0 Urine Specific [place] 1.003 Urine Ketones NEGATIVE Urine Nitrite NEGATIVE Urine Bilirubin NEGATIVE Urine Urobilinogen NEGATIVE Urine Leukocyte Esterase NEGATIVE Urine Hemoglobin NEGATIVE Urine Glucose NEGATIVE Urine Total Protein NEGATIVE White Blood Count 7.5 6.1 Red Blood Count 4.14 L 3.72 L Hemoglobin 12.4 11.2 L Hematocrit 37.9 34.2 L Mean Corpuscular Volume 91.5 91.9 Mean Corpuscular Hemoglobin 30.0 30.1 Mean Corpuscular Hemoglobin Concent 32.7 32.7 Red Cell Distribution Width 14.4 14.5 Platelet Count 239 204 Mean Platelet Volume 11.6 H 12.1 H Immature Granulocytes % 0.300 0.200 Neutrophils % 55.5 49.7 Lymphocytes % 36.7 41.9 Monocytes % 6.2 6.4 Eosinophils % 0.9 1.5 Basophils % 0.4 0.3 Nucleated Red Blood Cells % 0.0 0.0 Immature Granulocytes # 0.020 0.010 Neutrophils # 4.2 3.0 Lymphocytes # 2.8 2.6 Monocytes # 0.5 0.4 Eosinophils # 0.1 0.1 Basophils # 0.0 0.0 Nucleated Red Blood Cells # 0.0 0.0 Prothrombin Time 12.9 Prothrombin Time Ratio 1.0 INR International Normalized Ratio 0.96 Activated Partial Thromboplast Time 35.8 H Sodium Level 140 144 Potassium Level 3.4 L 4.3 Chloride Level 107 112 H Carbon Dioxide Level 22 26 Anion Gap 11 6 Blood Urea Nitrogen 10 9 Creatinine 0.65 0.63 Est Glomerular Filtrat Rate mL/min > 60 > 60 Glucose Level 139 92 # Calcium Level 9.3 8.4 Total Bilirubin 0.4 0.5 Direct Bilirubin 0.00 0.00 Indirect Bilirubin 0.4 0.5 Aspartate Amino Transf (AST/SGOT) 23 26 Alanine Aminotransferase (ALT/SGPT) 22 18 Alkaline Phosphatase 63 58 Troponin I < 0.012 Total Protein 7.7 6.3 # Albumin 4.1 3.3 Globulin 3.60 H 3.00 Albumin/Globulin Ratio 1.13 1.10 Amylase Level 82 Lipase 57 Hemoglobin A1c 5.6 Magnesium Level 2.3 Triglycerides Level 92 Cholesterol Level 183 LDL Cholesterol, Calculated 127 HDL Cholesterol 38 Cholesterol/HDL Ratio 4.8 Thyroid Stimulating Hormone (TSH) 2.610 Medications Medication Current Medications Sodium Chloride 1,000 ml @ 100 mls/hr Q10H IV Last administered on 09/12/18at 09:27; Admin Dose 100 MLS/HR; Start 09/11/18 at 23:46 IV Flush (NS 3 ml) 3 ml PER PROTOCOL IV ; Start 09/12/18 at 00:00 Ondansetron HCl (Zofran Inj) 4 mg Q6H PRN IV NAUSEA/VOMITING Last administered on 09/12/18at 10:52; Admin Dose 4 MG; Start 09/12/18 at 00:00 Metoclopramide HCl (Reglan) 10 mg Q6H PRN IV NAUSEA/VOMITING; Start 09/12/18 at 00:00 Acetaminophen (Tylenol Tab) 650 mg Q6H PRN PO .PAIN 1-3 OR TEMP; Start 09/12/18 at 00:00 Morphine Sulfate (morphine) 2 mg Q4H PRN IV .SEVERE PAIN 7-10 Last administered on 09/12/18at 10:48; Admin Dose 2 MG; Start 09/12/18 at 00:00 Pantoprazole (Protonix Iv) 40 mg BID@06,18 IV ; Start 09/12/18 at 18:00 Duloxetine HCl (Cymbalta) 20 mg TID PO ; Start 09/12/18 at 13:00 Gabapentin (Neurontin) 600 mg TID PO ; Start 09/12/18 at 13:00 Topiramate (Topamax) 50 mg BID PO ; Start 09/12/18 at 12:30 Phenol (Chloraseptic Throat [place]) 2 spray Q2H PRN MT SORE THROAT; Start 09/12/18 at 14:00 FLAQUITA CHAKRABORTY NP Sep 12, 2018 15:21
[2018-09-12] MEDS: PANTOPRAZOLE 40 MG INJ IV SCH (17:05)
[2018-09-12 20:00] VITALS: BP 123/60; PULSE 50; RESP 19
[2018-09-13 02:00] VITALS: BP 99/55; PULSE 59; RESP 17
[2018-09-13] MEDS: SOD CHLORIDE 0.9% 1,000 ML IV SCH ×2 (05:46→11:50)
[2018-09-13] MEDS: PANTOPRAZOLE 40 MG INJ IV SCH (06:40)
[2018-09-13 08:00] VITALS: BP 102/57; PULSE 76; RESP 20
[2018-09-13] MEDS: ONDANSETRON 4 MG INJ IV PRN (08:16)
[2018-09-13] MEDS: GABAPENTIN 300 MG CAP PO SCH ×2 (08:16→12:15)
[2018-09-13] MEDS: DULOXETINE 20 MG CAP DR PO SCH ×2 (08:16→12:14)
[2018-09-13] MEDS: morphine 2 MG INJ IV PRN (08:16)
[2018-09-13] MEDS: TOPIRAMATE 25 MG TAB PO SCH (08:17)
[2018-09-13] MEDS ORDERED: HYOSCYAMINE 0.125 MG SUBL TAB PO SCH (10:00)
--- NOTE | 2018-09-13 10:09 | PN ---
Date/Time of Note Date/Time of Note DATE: 09/13/18 TIME: 09:53 Assessment/Plan VTE Prophylaxis Risk score (from Nsg)>0 risk: 3 SCD applied (from Nsg): Yes Pharmacological prophylaxis: heparin Lines/Catheters IV Catheter Type (from Nrsg): Peripheral IV Assessment/Plan Assessment/Plan Assessment: Diarrhea Upper abdominal pain -CT abdomen pelvis with contrastfocal ileus versus early or partial small bowel obstruction -small bowel follow-through is negative Normocytic anemia, mild Trigeminal neuralgia Anxiety/depression Plan: SBFT -negative Stool studies Pain management Start Levsin 3 times daily Advance diet as tolerated Anoscopy as an outpatient versus inpatient if patient does not improve Patient seen in collaboration with Dr. Avilez Subjective: Patient is complaining of generalized abdominal pain and diarrhea. She is tolerating clear liquid diet well without nausea or vomiting. She denies hematochezia. Results of small bowel follow-through have been reviewed with the patient. We will advance diet to regular. Start Levsin. Recommend colonoscopy as an outpatient for CRC screening versus inpatient if patient continues having symptoms. Exam PHYSICAL EXAMINATION: GENERAL: Well developed, well nourished, alert & oriented x 3, in no acute distress SKIN: No lesions HEAD: Normocephalic, atraumatic, no tenderness. EYES: Pupils equal reactive to light and accommodation, no discharge. EARS/NOSE AND THROAT: Ears normal, nose normal. NECK: Supple, no masses. CHEST: Inspection within normal limits. CARDIOVASCULAR: Heart: Regular rate and rhythm. RESPIRATORY: Lungs clear to auscultation GASTROINTESTINAL AND LIVER: Abdomen: Soft, generalized abdominal pain, non- distended, no hernias, no masses, no organomegaly, no ascites, no guarding, no rebound tenderness, normoactive bowel sounds. Rectal: Deferred. EXTREMITIES: No cyanosis, clubbing or edema. Result Diagram: 09/13/18 0440 09/13/18 0440 Results 24hrs Laboratory Tests Test 09/13/18 04:40 White Blood Count 5.5 Red Blood Count 3.93 L Hemoglobin 11.7 L Hematocrit 36.9 L Mean Corpuscular Volume 93.9 Mean Corpuscular Hemoglobin 29.8 Mean Corpuscular Hemoglobin Concent 31.7 L Red Cell Distribution Width 14.4 Platelet Count 209 Mean Platelet Volume 12.0 H Immature Granulocytes % 0.200 Neutrophils % 55.6 Lymphocytes % 35.5 Monocytes % 6.7 Eosinophils % 1.6 Basophils % 0.4 Nucleated Red Blood Cells % 0.0 Immature Granulocytes # 0.010 Neutrophils # 3.1 Lymphocytes # 2.0 Monocytes # 0.4 Eosinophils # 0.1 Basophils # 0.0 Nucleated Red Blood Cells # 0.0 Sodium Level 142 Potassium Level 4.1 Chloride Level 111 H Carbon Dioxide Level 26 Anion Gap 5 Blood Urea Nitrogen 8 Creatinine 0.71 Est Glomerular Filtrat Rate mL/min > 60 Glucose Level 93 Calcium Level 8.9 Phosphorus Level 4.5 Magnesium Level 2.0 CC: TRICIA AVILEZ MD ; Exam/Review of Systems Exam Vitals Vital Signs Date Temp Pulse Resp B/P (MAP) Pulse Ox O2 O2 Flow FiO2 Time Delivery Rate 09/13/18 98.6 76 20 102/57 96 08:00 (72) 09/12/18 Room Air 08:13 Intake and Output 09/12/18 09/12/18 09/13/18 1515:00 23:00 07:00 IntakeIntake Total 500 ml 1000 ml 1570 ml OutputOutput Total 1200 ml 1100 ml 500 ml BalanceBalance -700 ml -100 ml 1070 ml Results Results 24hrs Laboratory Tests Test 09/13/18 04:40 White Blood Count 5.5 Red Blood Count 3.93 L Hemoglobin 11.7 L Hematocrit 36.9 L Mean Corpuscular Volume 93.9 Mean Corpuscular Hemoglobin 29.8 Mean Corpuscular Hemoglobin Concent 31.7 L Red Cell Distribution Width 14.4 Platelet Count 209 Mean Platelet Volume 12.0 H Immature Granulocytes % 0.200 Neutrophils % 55.6 Lymphocytes % 35.5 Monocytes % 6.7 Eosinophils % 1.6 Basophils % 0.4 Nucleated Red Blood Cells % 0.0 Immature Granulocytes # 0.010 Neutrophils # 3.1 Lymphocytes # 2.0 Monocytes # 0.4 Eosinophils # 0.1 Basophils # 0.0 Nucleated Red Blood Cells # 0.0 Sodium Level 142 Potassium Level 4.1 Chloride Level 111 H Carbon Dioxide Level 26 Anion Gap 5 Blood Urea Nitrogen 8 Creatinine 0.71 Est Glomerular Filtrat Rate mL/min > 60 Glucose Level 93 Calcium Level 8.9 Phosphorus Level 4.5 Magnesium Level 2.0 Medications Medication Current Medications Sodium Chloride 1,000 ml @ 100 mls/hr Q10H IV Last administered on 09/12/18 22:27; Admin Dose 100 MLS/HR; Start 09/11/18 at 23:46 IV Flush (NS 3 ml) 3 ml PER PROTOCOL IV ; Start 09/12/18 at 00:00 Ondansetron HCl (Zofran Inj) 4 mg Q6H PRN IV NAUSEA/VOMITING Last administered on 09/13/18 08:16; Admin Dose 4 MG; Start 09/12/18 at 00:00 Metoclopramide HCl (Reglan) 10 mg Q6H PRN IV NAUSEA/VOMITING; Start 09/12/18 at 00:00 Acetaminophen (Tylenol Tab) 650 mg Q6H PRN PO .PAIN 1-3 OR TEMP Last administered on 09/13/18 04:13; Admin Dose 650 MG; Start 09/12/18 at 00:00 Morphine Sulfate (morphine) 2 mg Q4H PRN IV .SEVERE PAIN 7-10 Last administered on 09/13/18 08:16; Admin Dose 2 MG; Start 09/12/18 at 00:00 Pantoprazole (Protonix Iv) 40 mg BID@06,18 IV Last administered on 09/13/18 06:40; Admin Dose 40 MG; Start 09/12/18 at 18:00 Duloxetine HCl (Cymbalta) 20 mg TID PO Last administered on 09/13/18 08:16; Admin Dose 20 MG; Start 09/12/18 at 13:00 Gabapentin (Neurontin) 600 mg TID PO Last administered on 09/13/18 08:16; Admin Dose 600 MG; Start 09/12/18 at 13:00 Topiramate (Topamax) 50 mg BID PO Last administered on 09/13/18 08:17; Admin Dose 50 MG; Start 09/12/18 at 12:30 Phenol (Chloraseptic Throat [place]) 2 spray Q2H PRN MT SORE THROAT Last administered on 09/12/18 16:59; Admin Dose 2 SPRAY; Start 09/12/18 at 14:00 LINNEA SNIDER NP Sep 13, 2018 10:05
--- NOTE | 2018-09-13 13:00 | PDOCDIS ---
Discharge Instructions CONDITION [id number] Patient Condition: [id number] Stable HOME CARE INSTRUCTIONS: [id number] Diet Instructions: [id number] Regular OTHER ORDERS: Other Orders: 1. Resume home medications. 2. Start taking Levsin. 3. Follow a regular diet as tolerated. 4. Follow-up with your primary care provider in 1 week. Have your primary care physician arrange for outpatient gastroenterology follow-up. 5. Please go to the nearest ER if you have significant abdominal pain, persistent nausea/vomiting or any other unusual signs/symptoms. 1. Reanudar los medicamentos caseros. 2. Comience a susana Levsin. 3. Siga danita dieta regular segn lo tolerado. 4. Beny un seguimiento con norris proveedor de atencin primaria en 1 semana. Pdale a norris mdico de atencin primaria que se encargue del seguimiento de la gastroenterologa ambulatoria. 5. Dirjase a la ciara de emergencias ms cercana si tiene dolor abdominal significativo, nuseas / vmitos persistentes o cualquier otro signo / sntoma inusual. FLAQUITA CHAKRABORTY NP Sep 13, 2018 13:00
--- NOTE | 2018-09-13 14:39 | DS ---
Date/Time of Note Date/Time of Note DATE: 09/13/18 TIME: 14:39 Discharge Summary Admission/Discharge Info Admit Date/Time Sep 11, 2018 at 23:42 Discharge Date/Time Discharge Diagnosis 1. Abdominal pain. 2. Trigeminal neuralgia. 3. Anxiety disorder. 4. Obesity. BMI of 30 kilograms per meter square. Patient Condition: Stable Consults 1. Junior Avilez MD, Gastroenterology. 2. Erickson Ashley MD, General Surgery. Procedures CT Abdomen and Pelvis IMPRESSION: No evidence of urolithiasis, obstructive uropathy, diverticulitis or appendicitis. Calcified appendicolith. Tiny hepatic cysts. Single moderately distended fluid filled loops small bowel right lower quadrant without mural thickening or transition. This most likely represents focal ileus, however, early or partial small bowel cannot be ruled out. Hx of Present Illness This is a 53-year-old female with past medical history of trigeminal neuralgia, anxiety, and depression who came to the emergency room with chief complaint of abdominal pain with CT evidence of ileus versus early/partial small bowel obs truction and was admitted to inpatient setting for further treatment and evaluation. Hospital Course The patient was admitted to inpatient setting. A gastroenterology and surgery consult was obtained. The patient was kept n.p.o. There was an interim plan for starting NGT decompression on this patient. Meanwhile, the patient had a small bowel follow-through that was negative for any small bowel obstruction or ileus. The patient was started on a clear liquid diet and the patient's diet was advanced as tolerated to a regular consistency diet. The patient was able to tolerate oral intake without any nausea or vomiting. The patient continued to complain of nonspecific abdominal pain. It seems like the patient has chronic pain since she is getting gabapentin, Cymbalta, and Topamax as scheduled at home, although she claims that this is to help her with her trigeminal neuralgia. Gastroenterology recommended outpatient colonoscopy for colorectal cancer screening. The patient was also started on Levsin 3 times a day. Patient has history of underlying anxiety and depression. She was maintained on mood stabilizers for the same. The patient was also noticed to be obese with a BMI 30 kg/m. The patient's hemoglobin A1c was found to be 5.6. The patient's fasting lipid panel was within normal limits. The patient was advised on lifestyle modification to address her obesity. The patient is stable for outpatient follow-up. Discharge Instructions 1. Resume home medications. 2. Start taking Levsin. 3. Follow a regular diet as tolerated. 4. Follow-up with your primary care provider in 1 week. Have your primary care physician arrange for outpatient gastroenterology follow-up. 5. Please go to the nearest ER if you have significant abdominal pain, persistent nausea/vomiting or any other unusual signs/symptoms. The patient verbalized understanding of her discharge instructions. At this time I would like to thank all the consultants for seeing the patient and providing clinical recommendations. The patient was seen in collaboration with Dr. Camilo. Home Meds Active Scripts Hyoscyamine Sulfate* (Hyoscyamine Sulfate*) 0.125 Mg Tab.subl, 0.125 MG PO Q8, #30 TAB Prov:FLAQUITA CHAKRABORTY NP 09/13/18 Sucralfate* (Carafate*) 1 Gm Tab, 1 GM PO BID, #60 TAB Prov:EDOUARD MACHADO MD 09/11/18 Reported Medications Gabapentin* (Gabapentin*) 600 Mg Tablet, 600 MG PO TID for NERVE PAIN, #60 TAB 09/12/18 Duloxetine Hcl* (Duloxetine Hcl*) 20 Mg Capsule., 20 MG PO TID for NERVE PAIN, #30 CAP 09/12/18 Topiramate* (Topiramate*) 50 Mg Tablet, 50 MG PO BID for MIGRAINE HEADACHE, TAB 09/12/18 Omeprazole* (Omeprazole*) 20 Mg Capsule., 20 MG PO BID, #60 CAP 09/12/18 Discontinued Reported Medications [Advil] No Conflict Check 06/18/11 Follow-up Plan The patient to follow-up with outpatient gastroenterology. Primary Care Provider Not On Staff Doctor Time spent on discharge: > 30 minutes Pending Labs Laboratory Tests Test 09/13/18 04:40 White Blood Count 5.5 10^3/ul (4.8-10.8) Red Blood Count 3.93 10^6/ul (4.20-5.40) Hemoglobin 11.7 g/dl (12.0-16.0) Hematocrit 36.9 % (37.0-47.0) Mean Corpuscular Volume 93.9 fl (82.0-101.0) Mean Corpuscular Hemoglobin 29.8 pg (29.0-33.0) Mean Corpuscular Hemoglobin Concent 31.7 g/dl (32.0-37.0) Red Cell Distribution Width 14.4 % (11.5-14.5) Platelet Count 209 10^3/UL (140-415) Mean Platelet Volume 12.0 fl (7.4-10.4) Immature Granulocytes % 0.200 % (0.001-0.429) Neutrophils % 55.6 % (39.0-77.0) Lymphocytes % 35.5 % (15.0-51.0) Monocytes % 6.7 % (0.0-11.0) Eosinophils % 1.6 % (0.0-7.0) Basophils % 0.4 % (0.0-2.0) Nucleated Red Blood Cells % 0.0 /100WBC (0.0-0.0) Immature Granulocytes # 0.010 10^3/ul (0.0-0.031) Neutrophils # 3.1 10^3/ul (1.6-7.5) Lymphocytes # 2.0 10^3/ul (0.8-2.9) Monocytes # 0.4 10^3/ul (0.3-0.9) Eosinophils # 0.1 10^3/ul (0.0-0.5) Basophils # 0.0 10^3/ul (0.0-0.1) Nucleated Red Blood Cells # 0.0 10^3/ul (0.0-0.0) Sodium Level 142 mmol/L (135-144) Potassium Level 4.1 mmol/L (3.5-5.1) Chloride Level 111 mmol/L (97-110) Carbon Dioxide Level 26 mmol/L (21-31) Anion Gap 5 (5-13) Blood Urea Nitrogen 8 mg/dl (7-20) Creatinine 0.71 mg/dl (0.44-1.00) Est Glomerular Filtrat Rate mL/min > 60 mL/min (>60) Glucose Level 93 mg/dl (70-220) Calcium Level 8.9 mg/dl (8.4-10.2) Phosphorus Level 4.5 mg/dl (2.5-4.9) Magnesium Level 2.0 mg/dl (1.7-2.5) FLAQUITA CHAKRABORTY NP Sep 13, 2018 14:39
== END 2018-09-13 15:06 | disposition home or self-care (01) | DRG 392 ==
LOC: E/R 18:56 → PP2 23:17 → OBSVTOIN 23:42
PROVIDERS: ADMIT Family Medicine; ATTEND Family Medicine
DX: R10.9 Unspecified abdominal pain (principal); E66.9 Obesity, unspecified; Z68.30 Body mass index [BMI] 30.0-30.9, adult; F41.9 Anxiety disorder, unspecified; F32.9 Major depressive disorder, single episode, unspecified; G50.0 Trigeminal neuralgia; E87.6 Hypokalemia; D64.9 Anemia, unspecified
CPT/HCPCS: 74177; 74250; 76705; 80048; 80053; 80061; 81003; 82150; 83036; 83690; 83735; 84100; 84443; 84484; 85025; 85610; 85730; 86674; 87045; 87086; 87177; 93005; 96374; 96375; G0378; C9113; J2270; J2405; J7030; Q9967